=== PATIENT | female | born 1940 | race Caucasian/White ===

== ENCOUNTER 2017-09-11 17:48 | Inpatient (IN) | payer MEDICARE, OTHER ==
[~2017-09-11] VITALS: Ht 157.5 cm; Wt 82.9 kg
[2017-09-11] MEDS ORDERED: FLOM5CAP PO (18:00)
[2017-09-11] MEDS ORDERED: NORC1TAB4 PO (18:00)
[2017-09-11] MEDS ORDERED: METF500T13 PO (18:00)
[2017-09-11] MEDS ORDERED: ROPI0.5T PO (18:00)
[2017-09-11] MEDS ORDERED: CIPR-250 PO (18:00)
[2017-09-11] MEDS ORDERED: BYDU1INJ SC (18:00)
[2017-09-11] MEDS ORDERED: LISI10TA2 PO (18:00)
[2017-09-11] MEDS ORDERED: TRAM50TA2 PO (18:00)
[2017-09-11] MEDS ORDERED: METF10004 PO (18:00)
[2017-09-11] MEDS ORDERED: ROPI1TAB PO (18:00)
[2017-09-11] MEDS ORDERED: KETOROLAC 30 MG/ML VIAL (J1885) IV ONE (20:00)
[2017-09-11] MEDS ORDERED: ONDANSETRON 4MG/2ML VIAL (J2405) IV ONE (20:00)
[2017-09-11] MEDS ORDERED: NS 500 ML IV ONE (20:15)
--- NOTE | 2017-09-11 21:40 | REPUSA ---
CLINICAL HISTORY: Hydronephrosis TECHNIQUE: Ultrasound of the kidneys was performed. Doppler color flow imaging was performed to evalu ate the hepatic lesion. RENAL ULTRASOUND: Right kidney: 11.8 x 5.3 x 5.7 cm. No stones. Mild hydronephrosis and proximal hydroureter. Left kidney: 13.6 (elongated morphology) x 4.7 x 4.8 cm. No hydronephrosis. There is an echogenic foc us of the lower pole measuring 4 mm which may represent nonobstructive stone or vascular calcificatio n. Other: There is a complex septated cyst associated with the right lobe of the liver which measures 7. 3 x 7.3 x 6.4 cm without increased blood flow on Doppler interrogation. Bladder: Bilateral ureteral jets noted, which subjects absence of total ureteral obstruction. IMPRESSION: 1. Mild right hydronephrosis without visible stones of the right kidney. The right ureteral jet was n oted within the bladder, which is suggests absence of ureteral obstruction. 2. 4 mm echogenic focus of the left renal lower pole may represent nonobstructive stone versus echoge ismael vascular shadow. 3. 7.3 cm septated cyst of the liver. Correlate with recent CT report.
[2017-09-11 22:07] LABS: MEAN CORPUSCULAR HEMOGLOBIN 26.4 pg (27.0-33.0); MEAN CORPUSCULAR HGB CONC 32.3 g/dl (32.0-36.5); MEAN CORPUSCULAR VOLUME 81.6 fl (80.0-96.0); PLATELET COUNT, AUTOMATED 235 10^3/uL (150-450); RED CELL DISTRIBUTION WIDTH 15.9 % (11.5-14.5); WHITE BLOOD COUNT 26.4 10^3/uL (4.0-10.0)
[2017-09-11 22:09] LABS: ADD MANUAL DIFFER YES; DIFF SLIDE NUMBER 330; LEFT SHIFT POS FLAG; POS COUNT POS FLAG; POSITIVE MORPH POS FLAG
[2017-09-11 22:22] LABS: BANDS 6 % (< 11)
[2017-09-11 22:30] LABS: ALBUMIN 3.2 GM/DL (3.2-5.2); ALBUMIN/GLOBULIN RATIO 1.03 (1.00-1.93); BILIRUBIN,DIRECT 0.2 MG/DL (0.0-0.2); BILIRUBIN,TOTAL 0.5 MG/DL (0.2-1.0); CALCIUM LEVEL 8.9 MG/DL (8.8-10.2); CREATININE FOR GFR 1.88 MG/DL (0.55-1.02); GLOMERULAR FILTRATION RATE 27.8 (>39); TOTAL PROTEIN 6.3 GM/DL (6.4-8.2)
[2017-09-12] MEDS ORDERED: METF500T13 PO ×2
[2017-09-12] MEDS ORDERED: BYDU1INJ SC
[2017-09-12] MEDS ORDERED: CIPR250T3 PO
[2017-09-12] MEDS ORDERED: ROPI0.5T PO
[2017-09-12] MEDS ORDERED: LISI10TA2 PO
[2017-09-12] MEDS ORDERED: ROPI1TAB PO
[2017-09-12] MEDS ORDERED: FLOM5CAP PO
[2017-09-12] MEDS ORDERED: TRAM50TA2 PO
[2017-09-12] MEDS ORDERED: GLUCAGON FOR INJ 1 MG VIAL (J1610) SC PRN (02:00)
[2017-09-12] MEDS ORDERED: DEXTROSE 50% 50 ML SYRINGE IV PRN (02:00)
[2017-09-12] MEDS ORDERED: GLUCOSE 4 GM CHEW TABLET PO PRN (02:00)
[2017-09-12] MEDS ORDERED: ONDANSETRON 4MG/2ML VIAL (J2405) IV PRN (02:00)
[2017-09-12] MEDS ORDERED: ACETAMINOPHEN 325 MG TAB PO PRN (02:45)
[2017-09-12] MEDS: cefTRIAXone SOD 1 GM in D5W 50 ML IV SCH (03:00)
[2017-09-12] MEDS: NS 1,000 ML IV SCH ×2 (03:35→15:25)
--- NOTE | 2017-09-12 04:24 | HPEPDOC ---
General Date of Admission Sep 12, 2017 at 03:08 Primary Care Physician: Matthew Del Angel Attending Physician: Efren Allen MD Chief Complaint The patient is a 76-year-old female admitted with a reason for visit of MELY. History of Present Illness Patient is a 26-year-old female with past medical history significant for diabetes, hypertension, restless leg, kidney stones presents to emergency room with right flank pain and chills. Patient stated that Saturday at 3 PM she started having severe right sided flank pain. She's had kidney stones in the past and this felt similar to that pain. She took nothing for the pain. She went to [facility] ER. At the ER she was having rigors. She had a scan that showed patient had hydronephrosis of the right kidney. There is no evidence of kidney stone obstructing the ureter. She was started on ciprofloxacin and Flomax. She was discharged home. Patient became nauseous and started vomiting upon arriving home. She was not able to keep anything down. Vomiting frequently. Denies any blood in her vomit. Saturday was about the same. Last time she was able to keep food down was Saturday. Has been sipping water. Last time she had emesis was this afternoon. No emesis in the ER. Patient is also had flank pain. She does not have any flank pain today on exam. She took her temperature at home and this was 90F. Denies any fevers. Admits to shaking all over with right years. Did not take any medication for the pain. In the ER patient had an ultrasound of kidney which showed mild hydronephrosis on the right side. No obstructing kidney stone. Patient will be admitted to hospital service. Home Medications Scheduled (Lisinopril/Hydrochlorothi 10-12.5 mg) 1 Tab Tab, 1 TAB PO DAILY, (Reported) Ciprofloxacin HCl (Ciprofloxacin HCl) 250 Mg Tab, 250 MG PO BID, (Reported) Exenatide (Bydureon) 2 Mg Inj, 2 MG SC ASDIRECTED, (Reported) TAKES ONCE A WEEK ON SATURDAY MORNINGS Metformin Hydrochloride (Metformin HCl) 500 Mg Tab, 500 MG PO DAILY, (Reported) Metformin Hydrochloride (Metformin HCl) 500 Mg Tab, 1,000 MG PO QHS, (Reported) Ropinirole Hydrochloride (Ropinirole HCl) 0.5 Mg Tab, 0.5 MG PO WM, (Reported) Ropinirole Hydrochloride (Ropinirole HCl) 1 Mg Tab, 1.5 MG PO QHS, (Reported) Tamsulosin Hydrochloride (Flomax) 0.4 Mg Cap, 0.4 MG PO DAILY, (Reported) Scheduled PRN Tramadol HCl (Tramadol HCl) 50 Mg Tab, 50 MG PO TID PRN for PAIN, (Reported) Allergies Coded Allergies: No Known Drug Allergy (Unverified Allergy, Unknown, 02/09/13) Pregabalin (Unverified Adverse Reaction, Intermediate, DIZZINESS, 09/12/17) Past Medical History Medical History Diabetes Hypertension Restless leg syndrome Osteoporosis, right knee Hyperlipidemia History of kidney stones Rotator cuff tear, unknown shoulder Surgical History Kidney stone Cervical spine, laminectomy, [facility] Lower lumbar spine, laminectomy, [facility] Family History Mother: Pancreatic cancer, , 54 years old Father: aortic aneurysm, 85 years old Brother: Healthy Sister: Cancer of face, unknown. Social History * Smoker: Denies, non-smoker Alcohol: Denies Drugs: denies Recent Travel/Sick Contacts: Denies: Recent travel, Recent sick contacts Patient is retired, worked at [employer] for years. Lives at home with her . Review of Symptoms Constitutional: Reports: Chills (rigors), Denies: Fever (T 98 F at home) Eyes: Denies: Vision change ENT: Reports: Head Aches (mild one today, none on exam) Skin: Denies: Rash, Lesions Pulmonary: Denies: Dyspnea, Cough Cardiovascular: Denies: Chest Pain, Palpitations Gastrointestinal: Reports: Nausea, Vomiting, Denies: Abdominal Pain, Diarrhea Genitourinary: Reports: Frequency (today urinating more frequently), Denies: Dysuria Musculoskeletal: Reports: Other Symptoms (Right flank pain, none today, stopped yesterday) Physical Examination General Exam: Positive: Alert, Cooperative, No Acute Distress Eye Exam: Positive: PERRLA, EOMI, Negative: Sclera icteric ENT Exam: Positive: Atraumatic, Nares Patent, Other ENT (mucus membranes dry) Neck Exam: Positive: Supple, Negative: thyromegaly, Lymphadenopathy Chest Exam: Positive: Clear to auscultation, Negative: Rhonchi, Wheezing Heart Exam: Positive: Rate Normal, Regular Rhythm, Murmurs (systolic 2/6 right sternal border) Abdomen Exam: Positive: Normal bowel sounds, Soft, Other (right flank pain) Extremity Exam: Positive: Normal pulses (radial 2/4 bilaterally), Negative: Edema, Swelling Skin Exam: Negative: Rash Neuro Exam: Positive: Normal Speech Psych Exam: Positive: Memory Intact, Oriented x 3 Vital Signs Vital Signs Date Time Temp Pulse Resp B/P (MAP) Pulse Ox O2 Delivery O2 Flow Rate FiO2 09/12/17 03:23 92 16 125/58 (80) 94 Room Air 09/11/17 17:49 99.1 Laboratory Data Labs 24H Laboratory Tests 2 09/11/17 20:13: Urine Appearance HAZY, Urine Color YELLOW, Urine pH 6.0, Urine Specific [place] 1.013, Urine Protein NEGATIVE, Urine Glucose (UA) NEGATIVE, Urine Ketones TRACEH , Urine Urobilinogen 0.2, Urine Bilirubin NEGATIVE, Urine Leukocyte Esterase 1+H , Urine Blood 1+H, Urine Nitrite NEGATIVE, Urine WBC (Auto) 18H, Urine RBC (Auto ) 4H, Urine Hyaline Casts (Auto) 0, Urine Bacteria (Auto) NEGATIVE, Urine Squamous Epithelial Cells 1, Urine Sperm (Auto) 09/11/17 21:58: Immature Granulocyte % (Auto) , Nucleated Red Blood Cells % (auto) 0.0, Neutrophils 87H, Band Neutrophils 6, Lymphocytes (Manual) 2L, Monocytes (Manual ) 5, Platelet Estimate NORMAL, Anion Gap 9, Glomerular Filtration Rate 27.8L, Lactic Acid Level 1.4, Calcium Level 8.9, Aspartate Amino Transf (AST/SGOT) 20, Alanine Aminotransferase (ALT/SGPT) 21, Alkaline Phosphatase 107, Total Bilirubin 0.5, Direct Bilirubin 0.2, Total Protein 6.3L, Albumin 3.2, Albumin/ Globulin Ratio 1.03, Amylase Level 48, Lipase 117 CBC/BMP Laboratory Tests 09/11/17 21:58 Red Blood Count 3.64 L, Mean Corpuscular Volume 81.6, Mean Corpuscular Hemoglobin 26.4 L, Mean Corpuscular Hemoglobin Concent 32.3, Red Cell Distribution Width 15.9 H Microbiology Microbiology 09/12/17 Blood Culture, Received Pending 09/12/17 Blood Culture, Received Pending 09/11/17 Urine Culture, Received Pending Assessment/Plan 1. Flank pain, hydronephrosis, possible pyelonephritis Patient has history of kidney stones. Patient had an ultrasound today which revealed mild hydronephrosis on the right. he stone visualized. Patient is not visualized kidney stone and urine and she has been straining for the past 2 days. We will also white count elevated to 26 today. Suspect possible pyelonephritis. Starting patient on IV ceftriaxone. Discontinuing ciprofloxacin. Urine culture ordered. Blood cultures 2 ordered. Pending. Repeat CBC. 2. Nausea vomiting Most likely secondary to patient's possible pyelonephrosis. Clear liquid diet at this point. IV fluids. Advance diet as tolerated. Patient stated Zofran helped in the ER. Continuing this as needed. 3. Acute kidney injury Most likely from decreased oral intake, vomiting. May also be secondary to kidney stone. Starting IV fluids at this time. No mass or kidney stone visualized on renal ultrasound. 4. Anemia Unsure if patient is at baseline hemoglobin. Appears lower than previous. Was 10.7 at [place] 2 days ago. Repeat lab in the morning. Ordering iron studies as well as vitamin B12 and folate. 5. Diabetes Starting patient on insulin sliding scale. Hyperglycemia protocol. 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 Restart on discharge. 6. Hypertension Continue home medications. Monitor vitals. 7. Restless leg syndrome Continue home medications. Plan / VTE VTE Prophylaxis Ordered?: Yes Plan Plan Admit patient to Med Surg. Dr. Vasquez. GME ATTESTATION GME ATTESTATION My preceptor for this patient encounter was physically present in the building during the encounter and was fully available. As needed, all aspects of the patient interview, examination, medical decision making process, and medical care plan development were reviewed and approved by the preceptor. Preceptor is aware and concurs with the plan as stated in the body of this note and will attest to such by his/her cosignature. DANIELLA DUMONT DO Sep 12, 2017 03:35
[2017-09-12 05:30] VITALS: BP 158/78
[2017-09-12] MEDS: HEPARIN SOD (PORCINE) 5000 UNITS/ML VIAL SC SCH ×2 (06:25→17:40)
[2017-09-12 07:22] LABS: MEAN CORPUSCULAR HEMOGLOBIN 26.3 pg (27.0-33.0); MEAN CORPUSCULAR HGB CONC 32.2 g/dl (32.0-36.5); MEAN CORPUSCULAR VOLUME 81.8 fl (80.0-96.0); PLATELET COUNT, AUTOMATED 209 10^3/uL (150-450); RED CELL DISTRIBUTION WIDTH 15.8 % (11.5-14.5); WHITE BLOOD COUNT 19.1 10^3/uL (4.0-10.0)
[2017-09-12 07:24] LABS: ADD MANUAL DIFFER YES; DIFF SLIDE NUMBER 95; LEFT SHIFT POS FLAG; POSITIVE MORPH POS FLAG
[2017-09-12] MEDS: HumaLOG INSULIN (NovoLOG) PER UNIT SC SCH ×4 (07:30→20:02)
[2017-09-12 07:49] LABS: CALCIUM LEVEL 8.4 MG/DL (8.8-10.2); CREATININE FOR GFR 1.58 MG/DL (0.55-1.02); GLOMERULAR FILTRATION RATE 33.9 (>39); PERCENT SATURATION 6.1 % (13.2-45.0); POTASSIUM SERUM 3.6 MEQ/L (3.5-5.1)
[2017-09-12 07:50] LABS: ANISOCYTOSIS 1+; BANDS 6 % (< 11); MICROCYTOSIS 1+
[2017-09-12 07:51] LABS: HYPOCHROMASIA 1+; POIKILOCYTOSIS 1+
[2017-09-12] MEDS: TAMSULOSIN 0.4 MG CAP PO SCH (08:06)
[2017-09-12] MEDS: rOPINIRole 0.25 MG TAB(REQUIP) PO SCH ×3 (08:06→17:40)
[2017-09-12 10:27] LABS: FOLATE 6.6 NG/ML (>5.4)
[2017-09-12 11:00] VITALS: BP 151/75
[2017-09-12 14:00] VITALS: BP 118/56
--- NOTE | 2017-09-12 15:50 | IPNPDOC ---
Text Note Date of Service The patient was seen on 09/12/17. NOTE Patient is seen and examined in the room today. Patient states her flank pain has resolved. She has good urine output. Her GI symptoms such as nausea, vomiting and abdominal discomfort have been better controlled. She can tolerate oral intake now. Physical Exam Gen: NAD. AOx3 HEENT: NCAT Cardio: +S1S2. regular rate. Resp: CTAB. Abd: Soft, bowel sound repent. no tenderness MSK: No edema. No cyanosis. A/P 1. MELY. most likely due to poor intake. Patient started on IV fluid. No history of CHF. Renal function has been improving. 2. pyelonephritis: Patient was cipro previously. Patient was in [place] previously. Will follow up with record. Urine culture in [facility] came back negative. May be false negative from previous cipro use. 3. Anemia: Will follow up with anemia workup. 4. Diabetes. On sliding scale. On consistent carbohydrate diet. 5. Restless leg syndrome. Continue home med. 6. Hypertension. Stable. 7. History of kidney stone. More than 10 years ago. 8. DVT prophylaxis: On heparin. VS,Fishbone, I+O VS, Fishbone, I+O Laboratory Tests 09/11/17 21:58 Red Blood Count 3.64 L, Mean Corpuscular Volume 81.6, Mean Corpuscular Hemoglobin 26.4 L, Mean Corpuscular Hemoglobin Concent 32.3, Red Cell Distribution Width 15.9 H 09/12/17 07:04 Red Blood Count 3.19 L, Mean Corpuscular Volume 81.8, Mean Corpuscular Hemoglobin 26.3 L, Mean Corpuscular Hemoglobin Concent 32.2, Red Cell Distribution Width 15.8 H, Calcium Level 8.4 L Vital Signs Date Time Temp Pulse Resp B/P (MAP) Pulse Ox O2 Delivery O2 Flow Rate FiO2 09/12/17 14:00 98.8 89 17 118/56 (76) 95 Room Air I&O- Last 24 Hours up to 6 AM 09/13/17 06:00 Intake Total 480 ml Output Total 650 ml Balance -170 ml KRISTIN BAILEY DO Sep 12, 2017 15:50
[2017-09-12] MEDS: rOPINIRole 1MG TAB PO SCH (20:05)
[2017-09-12] MEDS: ACETAMINOPHEN TAB 650MG DOSE (2X325MG) PO PRN (20:06)
[2017-09-12] MEDS: AZELASTINE 137MCG NASAL SPY 30 ML (ASTELIN) SCH (21:00)
[2017-09-12 22:00] VITALS: BP 147/78
[2017-09-12] MEDS ORDERED: MIRALAX *UNIT DOSE* 17GM PACKET PO PRN (22:30)
[2017-09-12 23:09] VITALS: BP 156/78
[2017-09-13] MEDS: diphenhydrAMINE 25 MG CAP PO PRN ×2 (02:08→21:33)
[2017-09-13] MEDS: cefTRIAXone SOD 1 GM in D5W 50 ML IV SCH (02:08)
[2017-09-13] MEDS: NS 1,000 ML IV SCH ×2 (03:46→15:07)
[2017-09-13] MEDS: HEPARIN SOD (PORCINE) 5000 UNITS/ML VIAL SC SCH ×2 (05:10→17:02)
[2017-09-13 06:00] VITALS: BP 148/72
[2017-09-13 06:44] LABS: BASO % 0.4 % (0.0-1.0); EOS # 0.1 10^3/uL (0.0-0.50); EOS % 1.3 % (0.0-3.0); IMMATURE GRANULOCYTE % 0.5 % (0-0); LYMPH # 1.1 10^3/uL (1.5-4.5); LYMPH % 9.6 % (24.0-44.0); MEAN CORPUSCULAR HEMOGLOBIN 26.5 pg (27.0-33.0); MEAN CORPUSCULAR HGB CONC 32.1 g/dl (32.0-36.5); MEAN CORPUSCULAR VOLUME 82.6 fl (80.0-96.0); MONO # 1.2 10^3/uL (0.0-0.8); MONO % 11.1 % (0.0-5.0); NEUTROPHILS # 8.4 10^3/uL (1.8-7.7); NEUTROPHILS % 77.1 % (36.0-66.0); PLATELET COUNT, AUTOMATED 198 10^3/uL (150-450); RED CELL DISTRIBUTION WIDTH 15.6 % (11.5-14.5); WHITE BLOOD COUNT 10.9 10^3/uL (4.0-10.0)
[2017-09-13 07:14] LABS: CALCIUM LEVEL 8.5 MG/DL (8.8-10.2); CREATININE FOR GFR 1.66 MG/DL (0.55-1.02); GLOMERULAR FILTRATION RATE 32.1 (>39); POTASSIUM SERUM 3.6 MEQ/L (3.5-5.1)
[2017-09-13 07:16] LABS: ERYTHROCYTE SEDIMENTATION RATE 63 mm/hr (0-30)
[2017-09-13] MEDS: traMADol 50 MG TAB PO PRN ×2 (07:53→17:04)
[2017-09-13] MEDS: DOCUSATE SODIUM 100 MG CAP PO SCH (08:30)
[2017-09-13] MEDS: TAMSULOSIN 0.4 MG CAP PO SCH (08:30)
[2017-09-13] MEDS: HumaLOG INSULIN (NovoLOG) PER UNIT SC SCH ×4 (08:31→21:00)
[2017-09-13] MEDS: AZELASTINE 137MCG NASAL SPY 30 ML (ASTELIN) SCH ×2 (08:31→21:34)
[2017-09-13] MEDS: rOPINIRole 0.25 MG TAB(REQUIP) PO SCH ×3 (08:31→17:01)
[2017-09-13 14:00] VITALS: BP 127/60
--- NOTE | 2017-09-13 14:02 | IPNPDOC ---
Text Note Date of Service The patient was seen on 09/13/17. NOTE Patient is seen and examined in the room today. Patient had temperature of 100.1 yesterday evening time. Patient states her right flank pain has resolved. She has good urine output. Her GI symptoms such as nausea, vomiting and abdominal discomfort have been better controlled. She can tolerate oral intake now. Physical Exam Vitals: Listed below Gen: NAD. AOx3 HEENT: NCAT Cardio: +S1S2. regular rate. Resp: CTAB. Abd: Soft, bowel sound repent. no tenderness MSK: No edema. No cyanosis. A/P 1. MELY. most likely due to poor intake. Patient started on IV fluid. No history of CHF. Renal function has been improving. Per PCP office, Patient had normal renal function in Jul 2017. 2. pyelonephritis: Patient was cipro previously. Patient was in [place] previously. Urine culture in [facility] came back negative; false negative due to prior antibiotic use. Record from [facility] showed positive urine culture; E Coli resistant to augmentin. Currently patient is on rocephin which is sensitive. 3. Anemia: started B12 and iron supplement. 4. Diabetes. On sliding scale. On consistent carbohydrate diet. 5. Restless leg syndrome. Continue home med. 6. Hypertension. Stable. 7. History of kidney stone. More than 10 years ago. 8. DVT prophylaxis: On heparin. VS,Fishbone, I+O VS, Fishbone, I+O Laboratory Tests 09/13/17 06:25 Red Blood Count 3.17 L, Mean Corpuscular Volume 82.6, Mean Corpuscular Hemoglobin 26.5 L, Mean Corpuscular Hemoglobin Concent 32.1, Red Cell Distribution Width 15.6 H, Neutrophils (%) (Auto) 77.1 H, Lymphocytes (%) (Auto ) 9.6 L, Monocytes (%) (Auto) 11.1 H, Eosinophils (%) (Auto) 1.3, Basophils (%) (Auto) 0.4, Neutrophils # (Auto) 8.4 H, Lymphocytes # (Auto) 1.1 L, Monocytes # (Auto) 1.2 H, Eosinophils # (Auto) 0.1, Basophils # (Auto) 0.0, Calcium Level 8.5 L Vital Signs Date Time Temp Pulse Resp B/P (MAP) Pulse Ox O2 Delivery O2 Flow Rate FiO2 09/13/17 08:31 16 09/13/17 06:00 96.6 86 148/72 (97) 95 Room Air I&O- Last 24 Hours up to 6 AM 09/14/17 06:00 Intake Total 360 ml Balance 360 ml KRISTIN BAILEY DO Sep 13, 2017 14:02
[2017-09-13] MEDS: FERROUS SULFATE 325MG TAB PO SCH (15:06)
[2017-09-13] MEDS: CYANOCOBALAMIN 500 MCG TAB PO SCH ×2 (15:06→21:34)
[2017-09-13] MEDS: ACETAMINOPHEN TAB 650MG DOSE (2X325MG) PO PRN (21:33)
[2017-09-13] MEDS: rOPINIRole 1MG TAB PO SCH (21:33)
[2017-09-13 22:00] VITALS: BP 134/67
--- NOTE | 2017-09-13 22:10 | IPN ---
DATE OF SERVICE: 09/12/2017 SUBJECTIVE: Patient is seen and examined in the room today. The patient stated her nausea and vomiting and abdominal discomfort have improved. DICTATION IS NOT COMPLETE
[2017-09-14] MEDS: cefTRIAXone SOD 1 GM in D5W 50 ML IV SCH (03:35)
[2017-09-14] MEDS: NS 1,000 ML IV SCH (03:35)
[2017-09-14 06:00] VITALS: BP 152/84
[2017-09-14 06:22] LABS: BASO # 0.1 10^3/uL (0.0-0.2); BASO % 0.5 % (0.0-1.0); EOS # 0.3 10^3/uL (0.0-0.50); EOS % 2.6 % (0.0-3.0); IMMATURE GRANULOCYTE % 1.4 % (0-0); LYMPH # 1.2 10^3/uL (1.5-4.5); LYMPH % 10.9 % (24.0-44.0); MEAN CORPUSCULAR HEMOGLOBIN 26.1 pg (27.0-33.0); MEAN CORPUSCULAR HGB CONC 31.8 g/dl (32.0-36.5); MEAN CORPUSCULAR VOLUME 82.1 fl (80.0-96.0); MONO # 1.6 10^3/uL (0.0-0.8); MONO % 14.3 % (0.0-5.0); NEUTROPHILS # 7.7 10^3/uL (1.8-7.7); NEUTROPHILS % 70.3 % (36.0-66.0); PLATELET COUNT, AUTOMATED 216 10^3/uL (150-450); RED CELL DISTRIBUTION WIDTH 15.8 % (11.5-14.5)
[2017-09-14] MEDS: HEPARIN SOD (PORCINE) 5000 UNITS/ML VIAL SC SCH ×2 (06:27→17:32)
[2017-09-14 06:59] LABS: CALCIUM LEVEL 8.5 MG/DL (8.8-10.2); CREATININE FOR GFR 1.49 MG/DL (0.55-1.02); GLOMERULAR FILTRATION RATE 36.3 (>39); POTASSIUM SERUM 3.9 MEQ/L (3.5-5.1)
[2017-09-14] MEDS: traMADol 50 MG TAB PO PRN ×2 (08:27→21:06)
[2017-09-14] MEDS: AZELASTINE 137MCG NASAL SPY 30 ML (ASTELIN) SCH ×2 (08:58→21:13)
[2017-09-14] MEDS: TAMSULOSIN 0.4 MG CAP PO SCH (08:59)
[2017-09-14] MEDS: rOPINIRole 0.25 MG TAB(REQUIP) PO SCH ×3 (08:59→17:33)
[2017-09-14] MEDS: CYANOCOBALAMIN 500 MCG TAB PO SCH ×2 (08:59→21:03)
[2017-09-14] MEDS: DOCUSATE SODIUM 100 MG CAP PO SCH (08:59)
[2017-09-14] MEDS: HumaLOG INSULIN (NovoLOG) PER UNIT SC SCH ×4 (08:59→21:00)
[2017-09-14] MEDS: FERROUS SULFATE 325MG TAB PO SCH (08:59)
--- NOTE | 2017-09-14 12:16 | IPNPDOC ---
Text Note Date of Service The patient was seen on 09/14/17. NOTE Patient is seen and examined in the room today. Denies any fever or chill. No recurrence of fever per documentation. Patient states her right flank pain has resolved. She has good urine output. Her GI symptoms such as nausea, vomiting and abdominal discomfort have been better controlled. She can tolerate oral intake now. Physical Exam Vitals: Listed below Gen: NAD. AOx3 HEENT: NCAT Cardio: +S1S2. regular rate. Resp: CTAB. Abd: Soft, bowel sound repent. no tenderness MSK: No edema. No cyanosis. A/P 1. MELY. most likely due to poor intake. Patient started on IV fluid. No history of CHF. Renal function has been improving. Per PCP office, Patient had normal renal function in Jul 2017. Since patient's GI symptoms improved, will discontinue IV fluid and encourage oral intke. 2. pyelonephritis: Patient was cipro previously. Patient was in [place] previously. Urine culture in [facility] came back negative; false negative due to prior antibiotic use. Record from [facility] showed positive urine culture; E Coli resistant to augmentin. Currently patient is on rocephin which is sensitive. 3. Anemia: started B12 and iron supplement. 4. Diabetes. On sliding scale. On consistent carbohydrate diet. 5. Restless leg syndrome. Continue home med. 6. Hypertension. Stable. 7. History of kidney stone. More than 10 years ago. 8. DVT prophylaxis: On heparin. VS,Fishbone, I+O VS, Fishbone, I+O Laboratory Tests 09/14/17 05:59 Red Blood Count 3.41 L, Mean Corpuscular Volume 82.1, Mean Corpuscular Hemoglobin 26.1 L, Mean Corpuscular Hemoglobin Concent 31.8 L, Red Cell Distribution Width 15.8 H, Neutrophils (%) (Auto) 70.3 H, Lymphocytes (%) (Auto ) 10.9 L, Monocytes (%) (Auto) 14.3 H, Eosinophils (%) (Auto) 2.6, Basophils (% ) (Auto) 0.5, Neutrophils # (Auto) 7.7, Lymphocytes # (Auto) 1.2 L, Monocytes # (Auto) 1.6 H, Eosinophils # (Auto) 0.3, Basophils # (Auto) 0.1, Calcium Level 8.5 L Vital Signs Date Time Temp Pulse Resp B/P (MAP) Pulse Ox O2 Delivery O2 Flow Rate FiO2 09/14/17 08:57 18 09/14/17 06:00 97.9 86 152/84 (106) 97 Room Air I&O- Last 24 Hours up to 6 AM 09/15/17 06:00 Intake Total 310 ml Output Total 1750 ml Balance -1440 ml KRISTIN BAILEY DO Sep 14, 2017 12:16
[2017-09-14 14:00] VITALS: BP 158/74
[2017-09-14] MEDS: rOPINIRole 1MG TAB PO SCH (21:03)
[2017-09-14] MEDS: diphenhydrAMINE 25 MG CAP PO PRN (21:07)
[2017-09-14 22:00] VITALS: BP 159/77
[2017-09-15] MEDS: cefTRIAXone SOD 1 GM in D5W 50 ML IV SCH (03:28)
[2017-09-15] MEDS: rOPINIRole 0.25 MG TAB(REQUIP) PO SCH ×3 (05:44→17:22)
[2017-09-15] MEDS: HEPARIN SOD (PORCINE) 5000 UNITS/ML VIAL SC SCH ×2 (05:44→17:22)
[2017-09-15 05:51] LABS: BASO % 0.5 % (0.0-1.0); EOS # 0.3 10^3/uL (0.0-0.50); EOS % 3.1 % (0.0-3.0); IMMATURE GRANULOCYTE % 2.8 % (0-0); LYMPH # 1.4 10^3/uL (1.5-4.5); LYMPH % 16.2 % (24.0-44.0); MEAN CORPUSCULAR HEMOGLOBIN 25.9 pg (27.0-33.0); MEAN CORPUSCULAR HGB CONC 31.9 g/dl (32.0-36.5); MEAN CORPUSCULAR VOLUME 81.3 fl (80.0-96.0); MONO # 1.2 10^3/uL (0.0-0.8); MONO % 14.7 % (0.0-5.0); NEUTROPHILS # 5.2 10^3/uL (1.8-7.7); NEUTROPHILS % 62.7 % (36.0-66.0); PLATELET COUNT, AUTOMATED 232 10^3/uL (150-450); RED CELL DISTRIBUTION WIDTH 15.4 % (11.5-14.5); WHITE BLOOD COUNT 8.3 10^3/uL (4.0-10.0)
[2017-09-15 06:14] LABS: CALCIUM LEVEL 9.1 MG/DL (8.8-10.2); CREATININE FOR GFR 1.33 MG/DL (0.55-1.02); GLOMERULAR FILTRATION RATE 41.4 (>39); POTASSIUM SERUM 3.9 MEQ/L (3.5-5.1)
[2017-09-15] MEDS: HumaLOG INSULIN (NovoLOG) PER UNIT SC SCH ×4 (07:30→20:22)
[2017-09-15] MEDS: AZELASTINE 137MCG NASAL SPY 30 ML (ASTELIN) SCH ×2 (09:00→20:28)
[2017-09-15] MEDS: FERROUS SULFATE 325MG TAB PO SCH (10:35)
[2017-09-15] MEDS: CYANOCOBALAMIN 500 MCG TAB PO SCH ×2 (10:35→20:27)
[2017-09-15] MEDS: DOCUSATE SODIUM 100 MG CAP PO SCH (10:36)
[2017-09-15] MEDS: TAMSULOSIN 0.4 MG CAP PO SCH (10:36)
[2017-09-15] MEDS: traMADol 50 MG TAB PO PRN ×2 (10:37→20:28)
--- NOTE | 2017-09-15 10:54 | IPNPDOC ---
Text Note Date of Service The patient was seen on 09/15/17. NOTE Subjective: Patient is seen and examined in the room today. Patient tolerates oral intake but she continues experiencing poor appetite. Her total oral intake is not back to her normal self. No recurrence of flank pain. Still has low grade temperature in the last 24 hours. Physical Exam Vitals: Listed below Gen: NAD. AOx3 HEENT: NCAT Cardio: +S1S2. regular rate. Resp: CTAB. No Wheeze or rhonchi Abd: Soft, bowel sound repent. no tenderness MSK: No edema. No cyanosis. A/P 1. MELY. most likely due to poor intake and pyelonephritis. Patient started on IV fluid. No history of CHF. Renal function has been improving. Per PCP office, Patient had normal renal function in Jul 2017. Since patient's GI symptoms improved, discontinued IV fluid and encourage oral intake. On IV roccephin for E Coli pyelonephritis. Oral intake is still not back to baseline. 2. pyelonephritis: Patient was cipro previously when she was in [facility]. Urine culture in [facility] came back negative; false negative due to prior antibiotic use. Record from [facility] showed positive urine culture; E Coli resistant to augmentin. Currently patient is on rocephin which is sensitive. 3. Anemia: started B12 and iron supplement. 4. Diabetes. On sliding scale. On consistent carbohydrate diet. 5. Restless leg syndrome. Continue home med. 6. Hypertension. Stable. 7. History of kidney stone. More than 10 years ago. 8. DVT prophylaxis: On heparin. VS,Fishbone, I+O VS, Fishbone, I+O Laboratory Tests 09/15/17 05:33 Red Blood Count 3.32 L, Mean Corpuscular Volume 81.3, Mean Corpuscular Hemoglobin 25.9 L, Mean Corpuscular Hemoglobin Concent 31.9 L, Red Cell Distribution Width 15.4 H, Neutrophils (%) (Auto) 62.7, Lymphocytes (%) (Auto) 16.2 L, Monocytes (%) (Auto) 14.7 H, Eosinophils (%) (Auto) 3.1 H, Basophils (% ) (Auto) 0.5, Neutrophils # (Auto) 5.2, Lymphocytes # (Auto) 1.4 L, Monocytes # (Auto) 1.2 H, Eosinophils # (Auto) 0.3, Basophils # (Auto) 0.0, Calcium Level 9.1 Vital Signs Date Time Temp Pulse Resp B/P (MAP) Pulse Ox O2 Delivery O2 Flow Rate FiO2 09/15/17 10:37 18 09/14/17 22:00 99.3 85 159/77 (104) 97 Room Air I&O- Last 24 Hours up to 6 AM 09/16/17 06:00 Intake Total 360 ml Output Total 200 ml Balance 160 ml KRISTIN BAILEY DO Sep 15, 2017 10:53
[2017-09-15 14:00] VITALS: BP 146/73
[2017-09-15] MEDS: diphenhydrAMINE 25 MG CAP PO PRN (20:27)
[2017-09-15] MEDS: rOPINIRole 1MG TAB PO SCH (20:27)
[2017-09-15 22:00] VITALS: BP 159/89
[2017-09-16] MEDS: cefTRIAXone SOD 1 GM in D5W 50 ML IV SCH (02:53)
[2017-09-16 06:00] VITALS: BP 159/84
[2017-09-16] MEDS: HEPARIN SOD (PORCINE) 5000 UNITS/ML VIAL SC SCH (06:04)
[2017-09-16 06:33] LABS: BASO % 0.5 % (0.0-1.0); EOS # 0.2 10^3/uL (0.0-0.50); EOS % 2.9 % (0.0-3.0); IMMATURE GRANULOCYTE % 3.1 % (0-0); LYMPH # 1.6 10^3/uL (1.5-4.5); LYMPH % 18.8 % (24.0-44.0); MEAN CORPUSCULAR HEMOGLOBIN 25.8 pg (27.0-33.0); MEAN CORPUSCULAR HGB CONC 31.8 g/dl (32.0-36.5); MEAN CORPUSCULAR VOLUME 81.2 fl (80.0-96.0); MONO % 12.3 % (0.0-5.0); NEUTROPHILS # 5.2 10^3/uL (1.8-7.7); NEUTROPHILS % 62.4 % (36.0-66.0); PLATELET COUNT, AUTOMATED 269 10^3/uL (150-450); RED CELL DISTRIBUTION WIDTH 15.4 % (11.5-14.5); WHITE BLOOD COUNT 8.3 10^3/uL (4.0-10.0)
[2017-09-16 06:48] LABS: ANION GAP 6 MEQ/L (8-16); BLOOD UREA NITROGEN 10 MG/DL (7-18); CALCIUM LEVEL 8.8 MG/DL (8.8-10.2); CARBON DIOXIDE LEVEL 28 MEQ/L (21-32); CHLORIDE LEVEL 106 MEQ/L (98-107); CREATININE FOR GFR 0.94 MG/DL (0.55-1.02); GLOMERULAR FILTRATION RATE > 60.0 (>39); GLUCOSE, FASTING 101 MG/DL (83-110); POTASSIUM SERUM 3.8 MEQ/L (3.5-5.1); SODIUM LEVEL 140 MEQ/L (136-145)
[2017-09-16] MEDS: rOPINIRole 0.25 MG TAB(REQUIP) PO SCH ×2 (07:57→12:22)
[2017-09-16] MEDS: HumaLOG INSULIN (NovoLOG) PER UNIT SC SCH ×2 (07:57→12:00)
[2017-09-16] MEDS: TAMSULOSIN 0.4 MG CAP PO SCH (07:57)
[2017-09-16] MEDS: FERROUS SULFATE 325MG TAB PO SCH (07:59)
[2017-09-16] MEDS: AZELASTINE 137MCG NASAL SPY 30 ML (ASTELIN) SCH (07:59)
[2017-09-16] MEDS: DOCUSATE SODIUM 100 MG CAP PO SCH (07:59)
[2017-09-16] MEDS: CYANOCOBALAMIN 500 MCG TAB PO SCH (07:59)
[2017-09-16] MEDS ORDERED: CEFD1CAP8 PO (09:22)
[2017-09-16] MEDS ORDERED: BACITAB PO (09:22)
--- NOTE | 2017-09-16 15:01 | DSES ---
DATE OF ADMISSION: 09/12/2017 DATE OF DISCHARGE: 09/16/2017 PRIMARY CARE PROVIDER: Dr. Del Angel CONSULTANTS: None. PROCEDURES: None. DISCHARGE DIAGNOSES: 1. Acute kidney injury. 2. Urinary tract infection (UTI)/pyelonephritis. 3. Anemia. 4. Diabetes. 5. Restless leg syndrome. 6. History of hypertension. 7. History of kidney stones. HOSPITALIZATION COURSE: The patient is a 76-year-old female who presented to [facility] on 09/12/2017 with acute kidney injury. Prior to her hospitalization, the patient was seen at and the patient was diagnosed with urinary tract infection and the patient was started on ciprofloxacin. The patient's symptoms continued to get worse with the treatment. Therefore, the patient came to [facility] for further evaluation. Records from were reviewed. The patient was determined to have pyelonephritis. The patient was started on IV Rocephin. With conservative management and IV antibiotic, the patient's symptoms continued to improve. WBC count continued to trend down, and clinically the patient continued to improve. Later, IV fluids was discontinued when the patient demonstrated adequate oral intake. With fluid hydration, the patient's renal function also returned to normal range. On 09/16/2017, patient determined to be medically stable for discharge. RECOMMENDATION: Finish course of antibiotic for pyelonephritis. VITAL SIGNS: On the day of discharge, temperature 97.5, pulse 80, respirations 20, blood pressure 159/84, pulse oximetry is 97% on room air. LABORATORY DATA: On day of discharge, WBC 8.3, hemoglobin 8.9, hematocrit 28, platelet count 269. Sodium is 140, potassium 3.8, chloride 106, carbon dioxide 28, BUN 10, creatinine 0.94, GFR greater than 60, fasting glucose 101, calcium is 8.8. Significant laboratories on the day of admission showed a WBC of 19.1 with ESR of 63. Creatinine 1.88 with GFR 33.9 on the day of admission. Microbiology: Blood cultures negative after 72 hours times two sets. Urine culture is negative (sample was taken after the patient had been taking a few days of ciprofloxacin prior to the current admission). Renal ultrasound showed mild right hydronephrosis without visible stone of the right kidney. Right ureteral jet was noted within the bladder, which suggests absence of ureteral obstruction. 7.3 cm cyst of the liver. DISCHARGE MEDICATIONS: - cefdinir 300 mg by mouth twice a day for 7 more days - Bacid one tablet with meals for 7 more days - Lisinopril/hydrochlorothiazide one tablet by mouth daily - metformin 100 mg by mouth daily - 1000 mg by mouth at night - Ropinirole 0.5 mg by mouth with meals - Ropinirole 1.5 mg by mouth at night - Flomax 0.4 mg by mouth daily - tramadol 50 mg by mouth three times a day as needed DISCHARGE INSTRUCTIONS: Discontinue line. Discharge home. Activity as tolerated. Consistent carbohydrate diet as tolerated. The patient should followup with primary care provider in 1 to 2 weeks. The patient is recommended to followup in a week for followup of her pyelonephritis. Discharge time: Greater than 30 minutes. Discharge condition: Stable.
== END 2017-09-16 12:48 | disposition home or self-care (01) | DRG 690 ==
LOC: M ED 17:48 → M ED INP 09-12 03:08 → M MSPAV 09-12 05:27
PROVIDERS: ATTEND Internal Medicine
DX: N12 Tubulo-interstitial nephritis, not specified as acute or chronic (principal); N13.30 Unspecified hydronephrosis; N17.9 Acute kidney failure, unspecified; E11.9 Type 2 diabetes mellitus without complications; D64.9 Anemia, unspecified; G25.81 Restless legs syndrome; I10 Essential (primary) hypertension; Z79.899 Other long term (current) drug therapy; Z88.8 Allergy status to other drugs, medicaments and biological substances; Z87.442 Personal history of urinary calculi; E78.5 Hyperlipidemia, unspecified

== ENCOUNTER 2019-12-12 14:58 | Emergency (ER) | payer MEDICARE, OTHER ==
[~2019-12-12] VITALS: Ht 157.5 cm; Wt 86.9 kg
[~2019-12-12 14:58] MED LIST: BACITAB PO; BYDU1INJ SC; CEFD1CAP8 PO; CIPR-250 PO; CIPR250T3 PO; FLOM0.4C39 PO; LISI10TA15 PO; METF10004 PO; METF500T13 PO; NORC1TAB7 PO; ROPI0.5T3 PO; ROPI1TAB3 PO; TRAM50TA2 PO
[2019-12-12] MEDS ORDERED: ATOR1TAB19 PO (15:10)
[2019-12-12] MEDS ORDERED: DULO1CAP5 PO (15:10)
[2019-12-12] MEDS ORDERED: ECOT81TA5 PO (15:10)
[2019-12-12] MEDS ORDERED: JARD1TAB PO (15:10)
[2019-12-12] MEDS ORDERED: PANT40TA3 PO (15:10)
[2019-12-12] MEDS ORDERED: LEVO250T12 PO (15:10)
[2019-12-12] MEDS ORDERED: NS 500 ML IV ONE (16:15)
[2019-12-12 16:19] LABS: BASO # 0.1 10^3/uL (0.0-0.2); BASO % 0.7 % (0.0-1.0); EOS # 0.2 10^3/uL (0.0-0.5); EOS % 1.3 % (0.0-3.0); HEMATOCRIT 39.8 % (36.0-47.0); HEMOGLOBIN 12.3 g/dl (12.0-15.5); LYMPH # 1.4 10^3/uL (1.5-5.0); LYMPH % 12.4 % (24.0-44.0); MEAN CORPUSCULAR HEMOGLOBIN 27.6 pg (27.0-33.0); MEAN CORPUSCULAR HGB CONC 30.9 g/dl (32.0-36.5); MEAN CORPUSCULAR VOLUME 89.4 fl (80.0-96.0); MONO # 0.9 10^3/uL (0.0-0.8); MONO % 7.7 % (0.0-5.0); NEUTROPHILS # 8.9 10^3/uL (1.5-8.5); NEUTROPHILS % 77.5 % (36.0-66.0); PLATELET COUNT, AUTOMATED 291 10^3/uL (150-450); RED BLOOD COUNT 4.45 10^6/uL (4.00-5.40); WHITE BLOOD COUNT 11.5 10^3/uL (4.0-10.0)
--- NOTE | 2019-12-12 16:41 | REP ---
Clinical: Left flank pain. Technique: Axial noncontrast images from the lung bases to the pubic symphysis with coronal and sagittal re-formations. Findings: The kidneys demonstrate chronic perinephric stranding and age-related changes with suspected peripelvic and parenchymal cysts. While there is no evidence for hydronephrosis or hydroureter, a 3 mm distal left ureteral calculus versus phlebolith cannot definitively be excluded or differentiated (images 110-112). Liver includes 4.7 cm cyst in the posterior right lobe. Spleen, pancreas, and bilateral adrenal glands are normal. The enteric system is without obstruction or acute inflammatory process. Normal terminal ileum identified in the right lower quadrant. Colonic diverticulosis noted without acute diverticulitis. Pelvis demonstrates normal bladder and age-appropriate uterus/adnexa. Multiple phleboliths noted in the pelvis. Musculoskeletal structures demonstrate osteopenia and degenerative changes along with prior lumbar laminectomy. Lung bases are clear. Impression: 1. Chronic changes to the kidneys including parapelvic and parenchymal cysts without hydronephrosis or hydroureter. Calcification in the left mackenzie pelvis cannot be differentiated between phlebolith or a nonobstructing ureteral stone. Correlation with urinalysis may be helpful. 2. Diverticulosis without acute diverticulitis. 3. 4.7 cm hepatic cyst. 4. No ascites. No inflammatory stranding. No adenopathy. Electronically Signed by Santosh Rosen MD 12/12/2019 04:32 P
[2019-12-12 16:45] LABS: ALBUMIN 3.9 GM/DL (3.2-5.2); BILIRUBIN,DIRECT 0.1 MG/DL (0.0-0.2); BILIRUBIN,TOTAL 0.4 MG/DL (0.2-1.0); TOTAL PROTEIN 6.8 GM/DL (6.4-8.2)
[2019-12-12] MEDS ORDERED: PYRI1TAB5 PO (17:00)
[2019-12-12] MEDS ORDERED: PHENAZOPYRIDINE 100 MG TAB PO ONE (17:00)
[2019-12-12 17:18] VITALS: BP 166/79
== END 2019-12-12 17:19 | disposition home or self-care (01) ==
LOC: M ED 14:58
DX: N39.0 Urinary tract infection, site not specified (principal); B96.1 Klebsiella pneumoniae [K. pneumoniae] as the cause of diseases classified elsewhere; K76.89 Other specified diseases of liver; K57.30 Diverticulosis of large intestine without perforation or abscess without bleeding; N28.1 Cyst of kidney, acquired; I10 Essential (primary) hypertension; E78.5 Hyperlipidemia, unspecified; E11.9 Type 2 diabetes mellitus without complications; Z88.8 Allergy status to other drugs, medicaments and biological substances; Z79.02 Long term (current) use of antithrombotics/antiplatelets; Z79.84 Long term (current) use of oral hypoglycemic drugs; Z79.890 Hormone replacement therapy; Z79.899 Other long term (current) drug therapy

== ENCOUNTER → 2021-03-18 | Outpatient (CLI) | payer MEDICARE, OTHER ==
[~2021-03-18] MED LIST changes: +ATOR1TAB19 PO; +DULO1CAP5 PO; +ECOT81TA5 PO; +JARD1TAB PO; +LEVO250T12 PO; +PANT40TA29 PO; +PYRI1TAB5 PO
== END ==
LOC: M LABSMTC 09:04
PROVIDERS: ATTEND Urology
DX: N20.1 Calculus of ureter (principal)